=== PATIENT | female | born 1960 | race Caucasian/White ===

== ENCOUNTER → 2018-09-03 | Outpatient (CLI) | payer BC | LOC: RAD 08:35 | DX: M19.172 Post-traumatic osteoarthritis, left ankle and foot (principal); Z87.81 Personal history of (healed) traumatic fracture; Z98.890 Other specified postprocedural states ==

== ENCOUNTER → 2018-09-04 | Outpatient (CLI) | payer BC | LOC: RAD 11:11 | DX: M89.372 Hypertrophy of bone, left ankle and foot (principal); M79.672 Pain in left foot; Z98.1 Arthrodesis status; Z96.7 Presence of other bone and tendon implants ==